=== PATIENT | female | born 1960 | race Caucasian/White ===

== ENCOUNTER 2021-10-02 11:26 | Emergency (ER) | payer OTHER ==
[~2021-10-02] VITALS: Ht 177.8 cm; Wt 61.2 kg
--- NOTE | 2021-10-02 11:41 | NUR ---
PT AMBULATED TO ER BED 3
[2021-10-02 11:46] VITALS: BP 107/73
--- NOTE | 2021-10-02 12:00 | NUR ---
61 Y/O F BIB SELF, C/O PALPITATIONS LAST NIGHT. HR 77 AT THIS TIME, DENIES CHEST PAIN, OR DIZZINESS PMH; ANEMIA, HYPOTHYROIDISM ALLERGIES; FISH
--- NOTE | 2021-10-02 12:03 | NUR ---
DR HUDSON AT BEDSIDE
--- NOTE | 2021-10-02 12:23 | NUR ---
Patient discharged with v/s stable. Written and verbal after care instructions ABOUT PALPITATIONS given and explained. Patient verbalized understanding. Ambulatory with steady gait. All questions addressed prior to discharge. Advised to follow up with PMD.
== END 2021-10-02 12:23 | disposition home or self-care (01) ==
LOC: MED 11:26
DX: R00.2 Palpitations (principal); E07.9 Disorder of thyroid, unspecified; Z91.013 Allergy to seafood
CPT/HCPCS: 81002; 93005; 99283

== ENCOUNTER 2022-06-12 18:32 | Emergency (ER) | payer OTHER ==
[~2022-06-12] VITALS: Ht 177.8 cm; Wt 61.2 kg
[2022-06-12 18:46] VITALS: BP 114/60
--- NOTE | 2022-06-12 18:54 | NUR ---
PT AMBULATED TO LOBBY. EKG DONE AT TRIAGE.
[2022-06-12 19:37] LABS: BASOPHILS # (AUTO) 0.1 K/uL (0.00-0.22); BASOPHILS % (AUTO) 1.3 % (0.0-2.0); EOSINOPHILS # (AUTO) 0.2 K/uL (0-0.4); EOSINOPHILS % (AUTO) 5.4 % (0.0-4.0); HEMATOCRIT 29.3 % (36-48); HEMOGLOBIN 9.7 g/dL (12.0-16.0); LYMPHOCYTES % (AUTO) 47.4 % (20.5-51.1); MEAN CORPUSCULAR HEMOGLOBIN 31 pg (27-31); MEAN CORPUSCULAR HGB CONC 33 g/dL (33-37); MONOCYTES # (AUTO) 0.2 K/uL (0.8-1.0); MONOCYTES % (AUTO) 5.5 % (1.7-9.3); NEUTROPHILS # (AUTO) 1.7 K/uL (1.8-7.7); NEUTROPHILS % (AUTO) 40.4 % (42.2-75.2); PLATELET COUNT (AUTO) 181 K/uL (140-450); RED BLOOD CELL COUNT(AUTO) 3.12 MIL/uL (4.20-5.40); RED CELL DISTRIBUTION WIDTH 13.9 % (11.6-13.7); WHITE BLOOD COUNT (AUTO) 4.3 K/uL (4.8-10.8)
[2022-06-12 20:19] LABS: ALBUMIN 3.1 g/dL (3.4-5.0); ANION GAP 9.2 (8-16); ASPARTATE AMINOTRANSFERASE 34 U/L (15-37); CARBON DIOXIDE 27.5 mmol/L (21-32); CHLORIDE 104 mmol/L (98-107); CREATININE 1.1 mg/dL (0.6-1.3); GFR ARICAN-AMERICAN 65 mL/min (>90); GLUCOSE 68 mg/dL (74-106); POTASSIUM 3.7 mmol/L (3.5-5.1); SODIUM SERUM 137 mmol/L (136-145); TOTAL BILIRUBIN 0.2 mg/dL (0.0-1.0); UREA NITROGEN, BLOOD 13 mg/dL (7-18)
[2022-06-12 21:31] LABS: FREE T4 (FREE THYROXINE) 0.56 ng/dL (0.76-1.46); THYROID STIMULATING HORMONE 4.74 uIU/mL (0.34-3.74)
[2022-06-12 22:30] VITALS: BP 114/60
--- NOTE | 2022-06-12 22:30 | NUR ---
Patient discharged with v/s stable. Written and verbal after care instructions given and explained. Patient verbalized understanding. Ambulatory with steady gait. All questions addressed prior to discharge. Advised to follow up with PMD.
== END 2022-06-12 22:30 | disposition home or self-care (01) ==
LOC: MED 18:32
DX: R00.2 Palpitations (principal); D64.9 Anemia, unspecified; E78.00 Pure hypercholesterolemia, unspecified; Z91.013 Allergy to seafood
CPT/HCPCS: 36415; 71045; 80053; 84439; 84443; 84484; 85025; 93005; 99285